=== PATIENT | female | born 1980 | race Caucasian/White ===

== ENCOUNTER 2016-10-09 23:54 | Emergency (ER) | payer MEDICAID ==
--- NOTE | 2016-10-10 04:09 | EDPHY ---
H & P Stated Complaint: abcesses all limbs & abdomen, abdo bloating; admits heroin/ meth use Time Seen by Provider: 10/10/16 01:15 HPI/ROS: HPI The patient presents with concern for abscesses. She uses injection drugs and has been shooting into her muscles of her thighs and upper arms. She has multiple red spots on her and she is concerned about abscesses. She also says that she believes there are bugs and worms living under her skin and that she occasionally sees them if she scratches off a scab. She wonders if there is medication for this. She has been using heroin and amphetamines. REVIEW OF SYSTEMS Constitutional: No fever, no chills. Eyes: No discharge. ENT: No sore throat. Cardiovascular: No chest pain, no palpitations. Respiratory: No cough, no shortness of breath. Gastrointestinal: No abdominal pain, no vomiting. Genitourinary: No hematuria. Musculoskeletal: No back pain. Skin: No rashes. Neurological: No headache. PMHx: Hep C, anxiety Soc Hx: Injection drug use PHYSICAL General Appearance: Alert, anxious and scratching at her skin Eyes: Pupils equal and round no pallor or injection ENT, Mouth: Mucous membranes moist Respiratory: There are no retractions, lungs are clear to auscultation Cardiovascular: Regular rate and rhythm Gastrointestinal: Abdomen is soft and non-tender, no masses, bowel sounds normal Neurological: A&O, moves all extremities Skin: Warm and dry, multiple areas of indurated erythema 1-3 cm on her anterior thighs, left deltoid with area of fluctuance, warmth, tenderness Musculoskeletal: Neck is supple non tender Extremities: symmetrical, full range of motion Psychiatric: Patient is oriented X 3, there is no agitation Source: Patient Exam Limitations: No limitations - Personal History LMP (Females 10-55): 1-7 Days Ago Current Tetanus/Diphtheria Vaccine: Unsure Current Tetanus Diphtheria and Acellular Pertussis (TDAP): Unsure Tetanus Vaccine Date: 2015? - Medical/Surgical History Hx Asthma: No Hx Chronic Respiratory Disease: No Hx Diabetes: No Hx Cardiac Disease: No Hx Renal Disease: No Hx Cirrhosis: No Hx Alcoholism: No Hx HIV/AIDS: No Hx Splenectomy or Spleen Trauma: No Other PMH: hep C, HEROIN addiction, panic attacks - Social History Smoking Status: Never smoked Constitutional: Initial Vital Signs Temperature (C) 36.7 C 10/10/16 00:06 Heart Rate 82 10/10/16 00:06 Respiratory Rate 20 10/10/16 00:06 Blood Pressure 121/76 H 10/10/16 00:06 O2 Sat (%) 98 10/10/16 00:06 O2 Delivery Mode Room Air Allergies/Adverse Reactions: No Known Allergies Allergy (Verified 03/26/16 11:39) Home Medications: Medication Instructions Recorded Acetaminophen [Tylenol 325mg (*)] 650 mg PO Q4HRS PRN #0 tab 03/29/16 Cephalexin [Keflex (*)] 500 mg PO Q6H #28 cap 10/10/16 Sulfamethox/Tmp 800/160 mg 1 tab PO BID #14 tab 10/10/16 [Bactrim Ds] Medical Decision Making Procedures: Bedside skin and soft tissue Ultrasound- performed and interpreted by me. Indication: Erythema and swelling of left deltoid Findings: Superficial area of fluid collection, no cobblestoning, no foreign body Impression: Abscess of left deltoid Procedure: Abscess drainage. The patient's abscess was located on the left deltoid. I obtained verbal consent from the patient to drain the abscess who was informed about the possibility of bleeding and pain. The abscess was incised with 11 blade scalpel and a moderate amount of purulent drainage was expressed. I irrigated the wound and placed some packing. The patient tolerated the procedure well. The procedure was performed by myself. Differential Diagnosis: This is a 36-year-old female with history of injection drug use, hepatitis-C, anxiety who presents with concern for abscesses related to IV drug use and also feels there are worms crawling under her skin. Differential diagnosis includes abscess, cellulitis, delusional parasitosis. In the emergency room, ultrasound was performed of all of the areas of induration and redness and 1 abscess was found overlying her left deltoid. This was incised and drained by me. I will start her on Keflex and Bactrim as I feel the other areas of induration or likely cellulitis. I explained to her that it would be very unlikely to have a parasitic infection causing this sensation of warmth crawling over her. I have explained this is a common phenomenon with methamphetamine use, however she is not quite receptive to this idea. She will be discharged, I have invited her back in 2 days for wound check. - Data Points Medications Given: Discontinued Medications Cephalexin HCl (Keflex) 500 mg PO EDNOW ONE PRN Reason: Protocol Stop: 10/10/16 04:43 Last Admin: 10/10/16 04:49 Dose: 500 mg Trimethoprim/Sulfamethoxazole (Bactrim Ds) 1 ea PO EDNOW ONE PRN Reason: Protocol Stop: 10/10/16 04:43 Last Admin: 10/10/16 04:49 Dose: 1 ea Departure - Departure Disposition: Home, Routine, Self-Care Clinical Impression: Abscess, Uses drugs by injection, Cellulitis Condition: Good Instructions: Abscess (ED), Warm Compress or Soak (ED) Additional Instructions: You can follow up with [facility] for regular care. Please return to the emergency room if you develop any worsening redness, swelling, pain. The packing should come out of the wound within 1 day. You can take it out yourself or come back to the ER and we can take it out here. Referrals: [facility],. [Clinic] - As per Instructions Prescriptions: Cephalexin [Keflex (*)] 500 mg PO Q6H #28 cap Sulfamethox/Tmp 800/160 mg [Bactrim Ds] 1 tab PO BID #14 tab
[2016-10-10] MEDS ORDERED: SULFAMETHOX/TMP 800/160 MG 1 TAB PO ONE (04:42)
[2016-10-10] MEDS ORDERED: CEPHALEXIN 500 MG CAP PO ONE (04:42)
[2016-10-10 04:50] VITALS: PULSE 66; O2SAT 96
[2016-10-10 04:52] VITALS: BP 121/74; RESP 14; TEMP 97.9
== END 2016-10-10 04:52 | disposition home or self-care (01) ==
LOC: EEVIPCON 23:54
PROC: 0H9JXZZ Drainage of Left Upper Leg Skin, External Approach (ICD-10-PCS; principal; 2016-10-09)
DX: L02.414 Cutaneous abscess of left upper limb (principal); L03.116 Cellulitis of left lower limb; T43.621A Poisoning by amphetamines, accidental (unintentional), initial encounter; T40.1X1A Poisoning by heroin, accidental (unintentional), initial encounter

== ENCOUNTER 2016-11-28 04:00 | Emergency (ER) | payer MEDICAID ==
[2016-11-28 04:27] VITALS: BP 115/68; PULSE 111; RESP 20; TEMP 98.4; O2SAT 99
--- NOTE | 2016-11-28 05:15 | EDPHY ---
H & P Stated Complaint: SKIN ABSCESS'S ALL OVER. THINKS SHE HAS PARISITES ALL OVER Time Seen by Provider: 11/28/16 04:41 HPI/ROS: Chief Complaint: Right arm abscess, multiple skin lesions HPI: 36-year-old woman has a history of chronic air when abuse, she injects into her muscles, complaining of worsening swelling redness and pain in her right arm. She has a history of multiple sutures abscesses in the past. Patient also states she has got multiple lesions on her arms and legs for for which she believes she is seen insect crawl out of. She believes that the air when she is using might have a eggs from insects in it. States that when she picks at these lesions a seem to get better you know she has been instructed not to. Denies any fevers or chills. No nausea or vomiting. No headache. No lightheadedness or fainting. ROS: 10 point Review of Systems is negative except as noted in the HPI. PMH: Chronic heroin abuse, multiple skin abscesses Social History: No smoking, no alcohol, daily heroin injection Family History: non-contributory Physical Exam: Gen: Awake, Alert, No Distress HEENT: Nose: no rhinorrhea Eyes: PERRLA, EOMI Mouth: Moist mucosa Neck: Supple, no JVD Chest: nontender, lungs clear to auscultation Heart: S1, S2 normal, no murmur Abd: Soft, non-tender, no guarding Back: no CVA tenderness, no midline tenderness Ext: She has a large at tender fluctuant mass on her right biceps. There is significant area surrounding erythema. It is tender to the touch. There is fluctuance. It is not pointing. Skin: She has multiple excoriations on bilateral upper lower extremities. There is no other areas of fluctuance. There is no other erythema. Neuro: CN II-XII intact, Sensation grossly intact, Strength 5/5 in bilateral upper and lower extremities - Personal History LMP (Females 10-55): 1-7 Days Ago Current Tetanus/Diphtheria Vaccine: Yes Current Tetanus Diphtheria and Acellular Pertussis (TDAP): Yes Tetanus Vaccine Date: 2015? - Medical/Surgical History Hx Asthma: No Hx Chronic Respiratory Disease: No Hx Diabetes: No Hx Cardiac Disease: No Hx Renal Disease: No Hx Cirrhosis: No Hx Alcoholism: No Hx HIV/AIDS: No Hx Splenectomy or Spleen Trauma: No Other PMH: hep C, HEROIN addiction, panic attacks, FEMORAL ABSCESS - Social History Smoking Status: Never smoked Constitutional: Initial Vital Signs Temperature (C) 36.9 C 11/28/16 04:23 Heart Rate 111 H 11/28/16 04:23 Respiratory Rate 20 11/28/16 04:23 Blood Pressure 115/68 11/28/16 04:23 O2 Sat (%) 99 11/28/16 04:23 O2 Delivery Mode Room Air Allergies/Adverse Reactions: No Known Allergies Allergy (Verified 11/28/16 04:27) Home Medications: Medication Instructions Recorded Cephalexin [Keflex (*)] 500 mg PO Q6H #40 cap 11/28/16 Sulfamethox/Tmp 800/160 mg 1 tab PO BID #20 tab 11/28/16 [Bactrim Ds] Medical Decision Making Procedures: Procedure: Abscess drainage. The patient's abscess was located on the right upper arm. I obtained verbal consent from the patient to drain the abscess who was informed about the possibility of bleeding and pain. The abscess was incised with 15 blade and a very large amount of purulent drainage was expressed. I irrigated the wound and placed some packing. The patient tolerated the procedure well. The procedure was performed by myself. ED Course/Re-evaluation: Patient with a large sugars abscess in the right upper arm. There is a significant amount of erythema surrounding cellulitis so I will start her on Bactrim and Keflex. As far as the other lesions go I do not see any signs of insect infestation and I think that these are factitious secondary to her chronic heroin use. Will discharge with follow up with her doctor at [facility] for further evaluation her healing abscess. Departure - Departure Disposition: Home, Routine, Self-Care Clinical Impression: Cellulitis, Abscess Condition: Good Instructions: Abscess (ED), Cellulitis (ED) Additional Instructions: Please make sure to take your full course of antibiotics. Your packing needs to be removed in 3-4 days, follow up with [facility] for this. Return to the emergency department for increasing fevers or chills, lightheadedness or fainting, abdominal pain, or any other concerns. Referrals: [facility] [Other] - As per Instructions Prescriptions: Cephalexin [Keflex (*)] 500 mg PO Q6H #40 cap Sulfamethox/Tmp 800/160 mg [Bactrim Ds] 1 tab PO BID #20 tab
[2016-11-28] MEDS ORDERED: SULFAMET/TMP DS PREPACK#2 BTL TAKEHOME ONE (05:18)
[2016-11-28] MEDS ORDERED: CEPHALEXIN 500MG PREPACK#4 BTL TAKEHOME ONE (05:18)
[2016-11-28] MEDS ORDERED: CEPHALEXIN 500 MG CAP PO ONE (05:37)
== END 2016-11-28 06:04 | disposition home or self-care (01) ==
PROC: 0H9BXZZ Drainage of Right Upper Arm Skin, External Approach (ICD-10-PCS; principal; 2016-11-28)
DX: L02.413 Cutaneous abscess of right upper limb (principal); L03.113 Cellulitis of right upper limb

== ENCOUNTER 2017-01-29 15:36 | Emergency (ER) | payer MEDICAID ==
[2017-01-29 15:42] VITALS: BP 125/72; PULSE 89; RESP 16; TEMP 98.6; O2SAT 99
[2017-01-29] MEDS ORDERED: SULFAMETHOX/TMP 800/160 MG 1 TAB PO ONE (16:01)
[2017-01-29] MEDS ORDERED: CEPHALEXIN 500 MG CAP PO ONE (16:01)
--- NOTE | 2017-01-29 16:06 | EDPHY ---
H & P Stated Complaint: Abcess on right thigh. Time Seen by Provider: 01/29/17 16:03 HPI/ROS: HPI: This is a 36-year-old female who presents with Chief Complaint: Right thigh abscess Location: Right lateral thigh Quality: Abscess Duration: 6 days Signs and Symptoms: no fever, no chills, no drainage, + warmth, + tenderness, + redness Timing: Gradual onset Severity: Mild Context: Patient complains of right thigh abscess in the early stages. It started while she was incarcerated inches placed on 5 days of Keflex; has not been on it for several days as she did not get her prescription refilled. She has noticed that the areas become slightly more red and tender. She has history of abscesses in the past. Denies history of diabetes/MRSA. She is no longer incarcerated. She follows with [facility] at [facility] for her primary care provider. Modifying Factors: Keflex Comment: ROS: Constitutional: No fever, no chills, no weight loss Eyes: No blurred vision Respiratory: No shortness of breath, no cough Cardiovascular: No chest pain Gastrointestinal: No nausea, no vomiting no diarrhea Genitourinary: No dysuria Extremities: No myalgias Neurologic: No weakness, no numbness Skin: No rashes Hematologic: No bruising, no bleeding MEDICAL/SURGICAL/SOCIAL HISTORY: Multiple abscesses. Hepatitis-C. Denies surgical history. Unemployed. History of heroin drug use. CONSTITUTIONAL: adult white female, awake and alert, no obvious distress HEENT: Atraumatic and normocephalic, PERRL, EOMI. Tympanic membranes clear. Oropharynx clear, no exudate and moist pink mucosa. Airway patent. No lymphadenopathy. No meningismus. Cardiovascular: Normal S1/S2, regular rate, regular rhythm, without murmur rub or gallop. PULMONARY/CHEST: Symmetrical and nontender. Clear to auscultation bilaterally. Good air movement. No accessory muscle usage. ABDOMEN: Soft, nondistended, nontender, no rebound, no guarding, no peritoneal signs, no masses or organomegaly. No CVAT. EXTREMITIES: 2/2 pulses, no deformities, no clubbing, no cyanosis or edema. NEUROLOGICAL: no focal neuro deficits. GCS 15. SKIN: Warm and dry, 5 cm mildly erythematous/hardened area right lateral outer thigh; no fluctuance; no drainage. no rash. Good capillary refill. Source: Patient Exam Limitations: No limitations - Personal History LMP (Females 10-55): 15-21 Days Ago Current Tetanus Diphtheria and Acellular Pertussis (TDAP): Yes Tetanus Vaccine Date: 2015 - Medical/Surgical History Hx Asthma: No Hx Chronic Respiratory Disease: No Hx Diabetes: No Hx Cardiac Disease: No Hx Renal Disease: No Hx Cirrhosis: No Hx Alcoholism: No Hx HIV/AIDS: No Hx Splenectomy or Spleen Trauma: No Other PMH: hep C, HEROIN addiction, panic attacks, FEMORAL ABSCESS - Social History Smoking Status: Never smoked Constitutional: Initial Vital Signs Temperature (C) 37 C 01/29/17 15:40 Heart Rate 89 01/29/17 15:40 Respiratory Rate 16 01/29/17 15:40 Blood Pressure 125/72 H 01/29/17 15:40 O2 Sat (%) 99 01/29/17 15:40 O2 Delivery Mode Room Air Allergies/Adverse Reactions: No Known Allergies Allergy (Verified 11/28/16 04:27) Home Medications: Medication Instructions Recorded Cephalexin [Keflex (*)] 500 mg PO TID #21 cap 01/29/17 Sulfamethox/Tmp 800/160 mg 1 tab PO BID #14 tab 01/29/17 [Bactrim Ds] Medical Decision Making ED Course/Re-evaluation: No fluctuant area to incise and drain. Edges of the indurated area were marked with a surgical pen. Will treat with Keflex and Bactrim (community acquired MRSA), warm compresses, and follow up with primary care provider in 2-3 days for wound check at which time will determine if incision and drainage appropriate at that time. Differential Diagnosis: Differential includes cellulitis, abscess, MRSA infection. Departure - Departure Disposition: Home, Routine, Self-Care Clinical Impression: Abscess of right thigh Condition: Good Instructions: Abscess (ED), Warm Compress or Soak (ED) Additional Instructions: Apply warm compresses for 10 minutes at a time 2-3 times per day. Take all antibiotics as directed until completed. Follow up with primary care provider in 2-3 days for wound check. Referrals: NONE *PRIMARY CARE P,. [Primary Care Provider] - As per Instructions [facility],. [Clinic] - As per Instructions Prescriptions: Cephalexin [Keflex (*)] 500 mg PO TID #21 cap Sulfamethox/Tmp 800/160 mg [Bactrim Ds] 1 tab PO BID #14 tab
== END 2017-01-29 16:15 | disposition home or self-care (01) ==
DX: L02.415 Cutaneous abscess of right lower limb (principal)
CPT/HCPCS: 86682-90

== ENCOUNTER 2017-02-17 20:30 | Emergency (ER) | payer MEDICAID ==
[2017-02-17 20:40] VITALS: TEMP 98.4
--- NOTE | 2017-02-17 21:45 | CPEKG ---
Heart Rate: 57 RR Interval: 1053 P-R Interval: 132 QRSD Interval: 76 QT Interval: 444 QTC Interval: 433 P [place]: 37 QRS [place]: 39 T Wave [place]: 31 EKG Severity - NORMAL ECG - EKG Impression: SINUS RHYTHM Electronically Signed By: Bennie Marshall 17-Feb-2017 23:05:37
--- NOTE | 2017-02-17 21:54 | EDPHY ---
H & P Stated Complaint: pain in chest and back; Hx of IVDA with injection of solids - Personal History LMP (Females 10-55): 1-7 Days Ago Current Tetanus/Diphtheria Vaccine: Yes Tetanus Vaccine Date: 2015 - Medical/Surgical History Hx Asthma: No Hx Chronic Respiratory Disease: No Hx Diabetes: No Hx Cardiac Disease: No Hx Renal Disease: No Hx Cirrhosis: No Hx Alcoholism: No Hx HIV/AIDS: No Hx Splenectomy or Spleen Trauma: No Other PMH: PMHx: hep C, HEROIN addiction, panic attacks, FEMORAL ABSCESS. PSHx : femoral artery abcess - Social History Smoking Status: Never smoked Time Seen by Provider: 02/17/17 21:39 HPI/ROS: CHIEF COMPLAINT: [left-sided chest pain times 3 days ] HISTORY OF PRESENT ILLNESS: [36-year-old female history of IV heroin use, was sober for 20 days, relapsed 3 nights ago and started skin popping heroin again in the ER via private vehicle complaining of 3 days of left-sided pleuritic chest pain radiating to her left scapula. No dyspnea. No syncope or near syncope. No fever or chills. No flu-like symptoms. No back pain. No headache. [PRIMARY CARE PROVIDER:][ none ] REVIEW OF SYSTEMS: [A ten point review of systems was performed and is negative with the exception of the items mentioned in the HPI] [PAST MEDICAL & SURGICAL HISTORY:] [ No pertinent medical or surgical history ] SOCIAL HISTORY:[ history significant for IV heroin, methamphetamine ] PHYSICAL EXAM (Prior to examination, patient consented to physical exam, hands were washed and my usual and customary physical exam procedures followed) 1) GENERAL: [Well-developed, alert and oriented. Appears to be in no acute distress.] 2) HEAD: [Normocephalic, atraumatic] 3) HEENT: [Pupils equal, round, reactive to light bilaterally. Sclera anicteric. ] 4) NECK: [Full range of motion, no meningeal signs.] 5) LUNGS: [Clear auscultation bilaterally, no wheezes, no rhonchi, no retractions.] 6) HEART: [chest wall is nontender. Multiple excoriated granulating lesions on bilateral breasts. Regular rate and rhythm, no murmur, no heave, no gallop.] 7) ABDOMEN: [No guarding, no rebound, no focal tenderness, negative McBurney's, negative Dodd's, negative Rovsing's, negative peritoneal sign], 8) MUSCULOSKELETAL: [Moving all extremities, no focal areas of tenderness, no obvious trauma. No peripheral edema or discoloration.] No negative Homans no palpable cord 9) BACK: [No CVA tenderness, no midline vertebral tenderness, no fluctuance, no step-off, no obvious trauma, no visual or palpable abnormality.] 10) SKIN: [No rash, no petechiae.] [11) Psychiatric: Patient is oriented X 3, there is no agitation.] DIFFERENTIAL DIAGNOSIS: In no particular order, including but not limited to myocardial ischemia, pulmonary embolus, chest wall pain, pleural inflammation and pulmonary infectious causes. (Moira Jackson) Constitutional: Initial Vital Signs Temperature (C) 36.9 C 02/17/17 20:37 Heart Rate 82 02/17/17 20:37 Respiratory Rate 18 02/17/17 20:37 Blood Pressure 113/72 02/17/17 20:37 O2 Sat (%) 99 02/17/17 20:37 O2 Delivery Mode Room Air Allergies/Adverse Reactions: No Known Allergies Allergy (Verified 11/28/16 04:27) Home Medications: Medication Instructions Recorded Suboxone 12 mg-3 mg Sl Film 02/17/17 Medical Decision Making - Diagnostics Imaging Results: Imaging Impressions Chest X-Ray 02/17/17 21:44 Impression: Query mild airways disease. A source for chest pain is not identified. Procedures: We had difficulty obtaining an IV. I attempted ultrasound-guided peripheral IV unsuccessfully. I then placed a right IJ IV. It is not a central line. This was done under sterile condition. (Bennie Marshall) ED Course/Re-evaluation: 1244AM: This patient was signed over to me at midnight shift change from Renetta SMYTH. Patient D-dimer is noted to be negative. Troponin noted to be negative. No high white blood cell count electrolytes appropriate. Given that she is not tachycardic she is not hypoxic and her D-dimer is negative. I did go reassess the patient. She continues to complain of left-sided pleuritic pain when she breathes in. In the setting of IV drug use and ongoing left- sided pleuritic pain without a great explanation I will proceed with CT angiogram of her chest. It is noted that her diarrhea is negative however she could have abscess in her lung from IV drug use bony abnormality, osteomyelitis , splenic infarct, which I think is unlikely however will proceed with CT angiogram. She is comfortable this plan. I did update her about her findings. If CT negative Will allow her to be discharged from the emergency room however she was given return precautions she understands she develops shortness of breath worsening pain she should return to the ER. 0128AM: Patient had CT angiogram of the chest. This shows no pulmonary embolism or pneumonia or pleural effusion however does show compression fracture of T8. Most likely acute. Additionally there is a mild compression fracture T5 and T7 . Most likely not acute. The T8 compression fracture may be the cause of her back pain that wraps around to the left side of her chest sharp in nature. Worse when she takes deep breath in. 0131 updated patient about her compression fractures of her back. Will refer her to Neurosurgery for follow-up care. This most likely the cause of her pain. 0140AM: Spoke with Dr. Staton Neurosurgery. Does not recommend back brace at this time. The patient has no midline back pain. Follow up with primary care doctor as well as Neurosurgery as needed. Return emergency room if worsening symptoms questions or concerns patient understands this. (Santino Bhandari) - Data Points Laboratory Results: Laboratory Results 02/17/17 22:55 02/17/17 22:55 02/17/17 02/17/17 02/17/17 22:55 22:55 22:55 WBC RBC Hgb Hct MCV MCH MCHC RDW Plt Count MPV Neut % (Auto) Lymph % (Auto) [place]son % (Auto) Eos % (Auto) Baso % (Auto) Nucleat RBC Rel Count Absolute Neuts (auto) Absolute Lymphs (auto) Absolute Monos (auto) Absolute Eos (auto) Absolute Basos (auto) Absolute Nucleated RBC Immature Gran % Immature Gran # D-Dimer 0.35 ug/mLFEU ug/mLFEU (0.00-0.50) Sodium 137 mEq/L mEq/L (134-144) Potassium 4.5 mEq/L mEq/L (3.5-5.2) Chloride 104 mEq/L mEq/L (97-110) Carbon Dioxide 25 mEq/l mEq/l (22-31) Anion Gap 8 mEq/L mEq/L (8-16) BUN 13 mg/dL mg/dL (7-23) Creatinine 0.7 mg/dL mg/dL (0.6-1.0) Estimated GFR > 60 Glucose 95 mg/dL mg/dL (70-100) Calcium 9.4 mg/dL mg/dL (8.5-10.4) Troponin I < 0.012 ng/mL ng/mL (0.000-0.034) Beta HCG, Qual NEGATIVE 02/17/17 22:55 WBC 7.50 10^3/uL 10^3/uL (3.80-9.50) RBC 4.23 10^6/uL 10^6/uL (4.18-5.33) Hgb 12.3 g/dL L g/dL (12.6-16.3) Hct 37.9 % L % (38.0-47.0) MCV 89.6 fL fL (81.5-99.8) MCH 29.1 pg pg (27.9-34.1) MCHC 32.5 g/dL g/dL (32.4-36.7) RDW 15.3 % H % (11.5-15.2) Plt Count 321 10^3/uL 10^3/uL (150-400) MPV 10.7 fL fL (8.7-11.7) Neut % (Auto) 54.2 % % (39.3-74.2) Lymph % (Auto) 33.5 % % (15.0-45.0) [place]son % (Auto) 7.9 % % (4.5-13.0) Eos % (Auto) 3.3 % % (0.6-7.6) Baso % (Auto) 0.8 % % (0.3-1.7) Nucleat RBC Rel Count 0.0 % % (0.0-0.2) Absolute Neuts (auto) 4.07 10^3/uL 10^3/uL (1.70-6.50) Absolute Lymphs (auto) 2.51 10^3/uL 10^3/uL (1.00-3.00) Absolute Monos (auto) 0.59 10^3/uL 10^3/uL (0.30-0.80) Absolute Eos (auto) 0.25 10^3/uL 10^3/uL (0.03-0.40) Absolute Basos (auto) 0.06 10^3/uL 10^3/uL (0.02-0.10) Absolute Nucleated RBC 0.00 10^3/uL 10^3/uL (0-0.01) Immature Gran % 0.3 % % (0.0-1.1) Immature Gran # 0.02 10^3/uL 10^3/uL (0.00-0.10) D-Dimer Sodium Potassium Chloride Carbon Dioxide Anion Gap BUN Creatinine Estimated GFR Glucose Calcium Troponin I Beta HCG, Qual Departure - Departure Disposition: Home, Routine, Self-Care Clinical Impression: Closed fracture of thoracic vertebral body Condition: Good Instructions: Vertebral Compression Fracture (ED) Additional Instructions: 1. Take it easy. 2. Take anti-inflammatory pain medicine for pain control ibuprofen or Tylenol. 3. Follow up with your referral as needed. 4. Return emergency room if you have worsening symptoms questions or concerns. Referrals: Bharati Ibarra PAC [Primary Care Provider] - As per Instructions Madan Staton MD [Medical Doctor] - As per Instructions
[2017-02-17 23:15] LABS: % IMMATURE GRANULYOCYTES 0.3 % (0.0-1.1); ABSOLUTE IMMATURE GRANULOCYTES 0.02 10^3/uL (0.00-0.10); ADD DIFF? NO; ADD MORPH? NO; ADD SCAN? NO; ATYPICAL LYMPHOCYTE FLAG 10 (0-99); FRAGMENT RBC FLAG 0 (0-99); HEMATOCRIT 37.9 % (38.0-47.0); HEMOGLOBIN 12.3 g/dL (12.6-16.3); LEFT SHIFT FLG 0 (0-99); LIPEMIA HEMOLYSIS FLAG 80 (0-99); MEAN CELL HEMOGLOBIN 29.1 pg (27.9-34.1); MEAN CELL HEMOGLOBIN CONCENTR. 32.5 g/dL (32.4-36.7); MEAN CELL VOLUME 89.6 fL (81.5-99.8); MEAN PLATELET VOLUME 10.7 fL (8.7-11.7); PLATELET CLUMPS FLAG 10 (0-99); PLATELET COUNT 321 10^3/uL (150-400); RED BLOOD CELL COUNT 4.23 10^6/uL (4.18-5.33); RED CELL DISTRIBUTION WIDTH 15.3 % (11.5-15.2)
[2017-02-17 23:25] LABS: ANION GAP 8 mEq/L (8-16); CALCIUM 9.4 mg/dL (8.5-10.4); CARBON DIOXIDE 25 mEq/l (22-31); CHLORIDE 104 mEq/L (97-110); CREATININE 0.7 mg/dL (0.6-1.0); GLOMERULAR FILTRATION RATE > 60; GLUCOSE 95 mg/dL (70-100); POTASSIUM 4.5 mEq/L (3.5-5.2); SODIUM 137 mEq/L (134-144)
[2017-02-17 23:37] LABS: TROPONIN I < 0.012 ng/mL (0.000-0.034)
[2017-02-18] MEDS ORDERED: IOPAMIDOL (ISOVUE 370) 100 ML BTL IV ONE (00:53)
[2017-02-18 01:51] VITALS: BP 115/67; PULSE 64; RESP 15; O2SAT 95
== END 2017-02-18 01:51 | disposition home or self-care (01) ==
DX: S22.060A Wedge compression fracture of T7-T8 vertebra, initial encounter for closed fracture (principal); X58.XXXA Exposure to other specified factors, initial encounter; Y99.8 Other external cause status; Y93.89 Activity, other specified
CPT/HCPCS: Q9967

== ENCOUNTER 2018-07-08 05:51 | Emergency (ER) | payer MEDICAID ==
[2018-07-08 06:36] LABS: PLATELET COUNT 320 10^3/uL (150-400)
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
[2018-07-08] MEDS ORDERED: NS 1,000 ML IV ONE (06:52)
[2018-07-08] MEDS ORDERED: IOPAMIDOL (ISOVUE 370) 100 ML BTL IV ONE (07:04)
[2018-07-08 08:04] VITALS: BP 127/83
== END 2018-07-08 08:13 | disposition home or self-care (01) ==
LOC: EEVIPCON 05:51
DX: S22.32XA Fracture of one rib, left side, initial encounter for closed fracture (principal); N63.20 Unspecified lump in the left breast, unspecified quadrant; R79.89 Other specified abnormal findings of blood chemistry; W22.8XXA Striking against or struck by other objects, initial encounter; Y92.811 Bus as the place of occurrence of the external cause; Y99.9 Unspecified external cause status; Y93.9 Activity, unspecified
CPT/HCPCS: Q9967